=== PATIENT | male | born 1945 | race Caucasian/White ===

== ENCOUNTER 2025-04-14 22:34 | Observation (INO) ==
[2025-04-14 22:58] LABS: Hematocrit (blood only) 41.7 % (42.0-52.0); Hemoglobin 14.3 g/dL (14.0-18.0); Immature Granulocytes # (auto) 0.03 K/uL (0.01-0.20); Immature Granulocytes % (auto) 0.5 %; Mean Corpuscular Hemoglobin 31.3 pg (25.0-34.0); Mean Corpuscular Volume 91.2 fL (80.0-100.0); Platelet Count 178 K/uL (130-400); RDW Standard Deviation 43.7 fL (36.4-46.3); Red Blood Count 4.57 M/uL (4.70-6.10); White Blood Count 5.89 K/ul (4.8-10.8)
--- NOTE | 2025-04-14 23:14 | Emergency Department Note ---
Impression & Plan Atypical chest pain, Shortness of breath ED Provider Note CHIEF COMPLAINT: Chest pain HISTORY OF PRESENT ILLNESS: This 79-year-old male patient presents to the emergency department via private vehicle accompanied by . The patient states he has been experiencing chest pain for about the past 3 months. He states this has been worsening over the past month and really over the past week. Patient states he was helping his to do her leg exercises after her knee surgery and states he was experiencing sharp twinges of pain in the left side of his chest. The patient denies otherwise exertional symptoms. He states he does feel somewhat short of breath. He states the pain comes and goes. At baseline, he has no pain, but intermittently experiences twinges of pain. The patient did recently have a nuclear stress test completed which showed an area of apical ischemia. He was started on aspirin and amlodipine and follows up with cardiology in April. The patient states that he was not told that he urgently requires a heart catheterization or other testing at this time. He denies any recent illness or fever. No cough or congestion. No leg pain or swelling. Patient denies history of similar symptoms. History provided by: Patient REVIEW OF SYSTEMS: A 10 system review of systems was performed with positives and pertinent negatives listed in the history of present illness. All other systems were reviewed and are negative. ALLERGIES: Penicillin, statins PHYSICAL EXAM: VITALS: Vitals are noted on the nurse's note and reviewed by myself. GENERAL: This is an 79-year-old male, in no acute distress, nondiaphoretic, well-developed well-nourished. SKIN: The skin was without rashes, erythema, edema, or bruising. There is no tenting of the skin. Capillary refill less than 2 seconds. HEAD: Normocephalic atraumatic. EARS: External auditory canals clear, tympanic membranes pearly colmenares without erythema or effusion bilaterally. No hemotympanum. Negative rhoades sign EYES: Pupils equal round and reactive to light and accommodation. Conjunctivae without injection, sclerae without icterus. Extraocular movements intact. NOSE: Patent, turbinates without inflammation or discharge. No sinus tenderness. MOUTH: Mucous membranes moist. Tonsils are not enlarged. Pharynx without erythema or exudate. Uvula midline. Airway patent. Tongue does not deviate. NECK: Supple without nuchal rigidity. No lymphadenopathy. Cervical spine is nontender. No JVD. HEART: Regular rate and rhythm without murmurs gallops or rubs. LUNGS: Clear to auscultation bilaterally without wheezes, rales or rhonchi. No retractions or accessory muscle use. ABDOMEN: Positive bowel sounds x 4. Soft, nontender, without masses or organomegaly. Barron sign negative. No guarding or rebound tenderness. MUSCULOSKELETAL: No muscle atrophy, erythema, or edema noted. Full range of motion without joint tenderness in all extremities. No tenderness to palpation. Normal gait. Strength 5/5 throughout. NEURO: Patient was alert and oriented to person place and time. No focal neurological deficits. An order was placed for continuous hall monitor. The monitor showed a normal sinus rhythm at a ventricular rate of 70 bpm, per my interpretation. EKG was reviewed by myself and found to be sinus rhythm with sinus arrhythmia at a rate of 74 beats per minute and per my interpretation reveals incomplete right bundle branch block, no ST elevation or depression. No T wave inversion. And when compared to previous EKG of 01/04/2025 is without significant change Repeat EKG completed and without acute ischemic changes. Imaging as interpreted by myself and the radiologist revealed no consolidation, with radiologist interpretation as above. I agree with the radiologist's findings as based upon my independent interpretation. EMERGENCY DEPARTMENT COURSE: Patient was evaluated as above. The patient presents to the emergency department for chest pain. Patient presents with his . He developed sharp twinges of pain in the left side of his chest which were worse while helping his with her physical therapy exercises this evening. The twinges are coming and going and are nonexertional in nature. Patient did recently have a nuclear stress test completed which showed an area of apical ischemia. He states this pain is completely different than the angina pain he has been experiencing but is concerned that it is likely related to his heart. IV access was obtained, labs were drawn. Labs were reviewed. Per my interpretation, no leukocytosis or concerning anemia. No thrombocytopenia. Renal, hepatic function and electrolytes without significant abnormality. Lipase is 34. High-sensitivity troponin is 4.2. Repeat troponin completed approximately 2 hours later is 4.1. Chest x-ray and EKG as above. No acute abnormalities. I discussed the findings with the patient at bedside. He was reassured about his negative cardiac evaluation at this time. Suggested pain may be muscular in nature given recent activity and helping his with exercises. He notes that he does not believe his pain is not related to his heart despite the negative evaluation as well as this being reportedly different than his normal angina type of pain. I did offer admission. The patient would like to be evaluated by the hospitalist. I discussed the case with Dr. Heredia, [facility] hospitalist physician. He did agree to evaluate patient for admission. Please see hospitalist dictation regarding ongoing management and final disposition of this patient. Case was discussed with the attending physician. I attest that I have personally reviewed the patient medication list. I attest that I have reviewed the patient's blood pressure and it was found to be elevated. Suspect this to be situational in nature. GCS: 15 In the evaluation and treatment of this patient the following differential diagnoses were entertained: Cardiac ischemia, aortic dissection, pulmonary embolism, pneumothorax, pneumonia, pericarditis, myocarditis, esophageal rupture, GERD, cholecystitis, pancreatitis, musculoskeletal, as well as other pathologies. The chart was completed utilizing [employer] voice recognition software. Grammatical errors, random word insertions, pronoun errors, and incomplete sentences are an occasional consequence of this system due to software limitations, ambient noise, and hardware issues. Any formal questions or concerns about the content, text, or information contained within the body of this dictation should be directly addressed to the provider for clarification. Past Med/Surg History Problem List (Updated 04/15/25 @ 04:13 by Cheryl Navas PA-C) Shortness of breath (Acute) Atypical chest pain (Acute) Diabetes mellitus type 2, controlled Musculoskeletal chest pain Medical History Chest pain Social History Smoking Status: Former smoker Tobacco Type: Cigarettes Second Hand Exposure: No; Do You Dip or Chew Tobacco: No; Hx Alcohol Use: No Hx Substance Use: No Preferred Language: Lebanese Communication Ability: Effective Saturator Operator Required: No Beliefs That Will Affect Care: None Current Living Situation: Spouse Feels Safe at Home: Yes Safety Concerns: Feels Safe At This Time Assistive Devices: Denture - Upper, Denture - Lower and Glasses Assistive Devices Comment: Hearing aids at home Allergies Allergies Allergy/AdvReac Type Severity Reaction Status Date / Time omeprazole Allergy Unknown Verified 04/14/25 23:18 Penicillins AdvReac Unknown Verified 04/14/25 23:18 Dyghosz-[id number]-WnR Reductase AdvReac Joint Pain Verified 04/14/25 23:18 Inhibitor Home Meds Home Medications Medication Instructions Recorded Confirmed amlodipine 2.5 mg tablet 2.5 mg PO QAM 04/14/25 04/14/25 aspirin 81 mg tablet,delayed 81 mg PO QAM 04/14/25 04/14/25 release empagliflozin 25 mg tablet 25 mg PO QAM 04/14/25 04/14/25 (Jardiance) ezetimibe 10 mg tablet 10 mg PO QAM 04/14/25 04/14/25 glipizide 10 mg tablet 10 mg PO BIDM 04/14/25 04/14/25 mesalamine 1,000 mg rectal 1 g AR HS PRN if rectal bleeding 04/14/25 04/14/25 suppository mesalamine 1.2 gram tablet,delayed 1.2 g PO BID 04/14/25 04/14/25 release omega-3 fatty acids 500 mg capsule 500 mg PO QAM 04/14/25 04/14/25 tamsulosin 0.4 mg capsule 0.4 mg PO QAM 04/14/25 04/14/25 Results & Data (ED) Vital Signs Vital Signs - 24 hr 04/14/25 22:37 04/14/25 22:50 04/14/25 22:51 Temperature 36.5 C Temperature Source Temporal Artery Scan Pulse Rate 73 Pulse Rate [Apical] 70 Pulse Rhythm Regular Pulse Strength Normal Respiratory Rate 20 20 Respiratory Effort / Characteristics Non-Labored Spontaneous Respiratory Depth Normal Respiratory Pattern Regular Blood Pressure 146/80 H Blood Pressure [Left Arm] 137/76 Blood Pressure Mean 102 Blood Pressure Mean [Left Arm] 96 Blood Pressure Position [Left Arm] Pulse Oximetry 97 96 96 Oxygen Delivery Method Room Air Room Air Room Air Sepsis Recent Fever Within 48 Hours No Sepsis New/Unexplained Change in Mental Status No Sepsis Action Taken by Nursing No Action Required 04/14/25 22:58 04/15/25 01:00 Temperature Temperature Source Pulse Rate 70 Pulse Rate [Apical] 66 Pulse Rhythm Pulse Strength Respiratory Rate 15 Respiratory Effort / Characteristics Non-Labored Spontaneous Respiratory Depth Normal Respiratory Pattern Regular Blood Pressure Blood Pressure [Left Arm] 148/77 H Blood Pressure Mean Blood Pressure Mean [Left Arm] 100 Blood Pressure Position [Left Arm] Semi-fowlers Pulse Oximetry 95 Oxygen Delivery Method Room Air Sepsis Recent Fever Within 48 Hours Sepsis New/Unexplained Change in Mental Status Sepsis Action Taken by Nursing Laboratory Data 04/14/25 22:46 04/14/25 22:46 Lab Results 04/14/25 04/15/25 Range/Units 22:46 00:53 WBC 5.89 (4.8-10.8) K/ul RBC 4.57 L (4.70-6.10) M/uL Hgb 14.3 (14.0-18.0) g/dL Hct 41.7 L (42.0-52.0) % MCV 91.2 (80.0-100.0) fL MCH 31.3 (25.0-34.0) pg MCHC 34.3 (32.0-36.0) g/dL RDW Std Deviation 43.7 (36.4-46.3) fL RDW Coeff of Epifanio 13.1 (11.5-14.5) % Plt Count 178 (130-400) K/uL MPV 9.8 (9.4-12.4) fL Immature Gran % (Auto) 0.5 % Neut % (Auto) 51.9 % Lymph % (Auto) 28.0 % [place] % (Auto) 15.1 % Eos % (Auto) 4.2 % Baso % (Auto) 0.3 % Neut # (Auto) 3.05 (1.40-6.50) K/uL Lymph # (Auto) 1.65 (1.20-3.40) K/uL [place] # (Auto) 0.89 H (0.11-0.59) K/uL Eos # (Auto) 0.25 (0.00-0.50) K/uL Baso # (Auto) 0.02 (0.00-0.20) K/uL Immature Gran # (Auto) 0.03 (0.01-0.20) K/uL Sodium 139 (136-145) mmol/L Potassium 4.4 (3.5-5.1) mmol/L Chloride 107 (98-107) mmol/L Carbon Dioxide 26 (21-32) mmol/L Anion Gap 6 (3-11) BUN 18 (6-23) mg/dl Creatinine 1.01 (0.6-1.4) mg/dl Est Cr Clr Drug Dosing 51.8 ml/min eGFR 74.72 BUN/Creatinine Ratio 17.8 (10-20) Glucose 196 H (70-99(Fasting)) mg/dl Calcium 9.0 (8.6-10.3) mg/dl Magnesium 2.1 (1.7-2.4) mg/dl Total Bilirubin 0.3 (0.2-1.0) mg/dl AST 15 (13-39) U/L ALT 15 (7-52) U/L Alkaline Phosphatase 67 (34-104) U/L Troponin I High Sens 4.2 4.1 (0-20) pg/ml Total Protein 7.4 (6.0-8.3) gm/dl Albumin 4.0 (3.4-5.0) gm/dl Globulin 3.4 (2.5-4.0) gm/dl Albumin/Globulin Ratio 1.2 (0.9-2) Lipase 34 (11-82) U/L Administered Medications Sodium Chloride (Nss) 1,000 mls @ 60 mls/hr IV .[id number] ONE Stop: 04/15/25 19:52 Last Admin: 04/15/25 03:43 Dose: 60 mls/hr Documented By: MELANIE Insulin Aspart (Insulin Aspart Per Unit Charge) 0 units SC Q6 ROSA Stop: 05/15/25 03:36 Last Admin: 04/15/25 04:00 Dose: Not Given Documented By: NRS Discontinued Medications Ioversol (Optiray 320 125ml) 125 ml IV ONCE ONE Stop: 04/15/25 03:25 Last Admin: 04/15/25 03:24 Dose: 118 ml Documented By: RAMÍREZ Imaging Data Radiologist's Impression: Chest X-Ray 04/14/25 22:49 Exam(s): XR CXR 1 VIEW EXAM: XR Chest, 1 View CLINICAL HISTORY: Chest pain, nonspecific. TECHNIQUE: Frontal view of the chest. COMPARISON: Portable chest single view 01/04/2025 FINDINGS: Lungs: Subcentimeter calcified granulomas, stable. No focal consolidation. The pulmonary vasculature demonstrates no significant radiographic abnormality. Pleural space: Unremarkable. No pneumothorax. No large pleural effusion. Heart: Unremarkable. No cardiomegaly. Mediastinum: The mediastinal contours are stable, accounting for lordotic technique. No tracheal deviation. Bones/joints: Unremarkable. No acute fracture. IMPRESSION: No acute cardiopulmonary process or significant alteration from the prior examination. Electronically signed by: Timur Carroll MD 04/15/25 00:11 AM Discharge Plan Visit Data Chief Complaint: Chest Pain Stated Complaint: CHEST PAIN OVER A WEEK, WORSE TODAY, SOB ED Provider: Gerda Silva ED Midlevel Provider: Cheryl Navas Discharge Problem: Atypical chest pain, Shortness of breath Patient Disposition: Admitted As Inpatient Condition: Good
[2025-04-14 23:25] LABS: Alanine Aminotransferase 15.0 U/L (7-52); Albumin Globulin Ratio 1.2 (0.9-2); Albumin Level 4.0 gm/dl (3.4-5.0); Alkaline Phosphatase 67.0 U/L (34-104); Anion Gap 6.0 (3-11); Bilirubin,Total 0.3 mg/dl (0.2-1.0); Blood Urea Nitrogen 18.0 mg/dl (6-23); Calcium 9.0 mg/dl (8.6-10.3); Carbon Dioxide 26.0 mmol/L (21-32); Chloride 107.0 mmol/L (98-107); Creatinine Clr Calc Pharmacy 51.8 ml/min; Globulin 3.4 gm/dl (2.5-4.0); Glucose 196.0 mg/dl (70-99(Fasting)); Lipase 34.0 U/L (11-82); Potassium 4.4 mmol/L (3.5-5.1); Sodium 139.0 mmol/L (136-145); Total Protein 7.4 gm/dl (6.0-8.3)
--- NOTE | 2025-04-15 00:13 | XRay Report ---
Exam(s): XR CXR 1 VIEW EXAM: XR Chest, 1 View CLINICAL HISTORY: Chest pain, nonspecific. TECHNIQUE: Frontal view of the chest. COMPARISON: Portable chest single view 01/04/2025 FINDINGS: Lungs: Subcentimeter calcified granulomas, stable. No focal consolidation. The pulmonary vasculature demonstrates no significant radiographic abnormality. Pleural space: Unremarkable. No pneumothorax. No large pleural effusion. Heart: Unremarkable. No cardiomegaly. Mediastinum: The mediastinal contours are stable, accounting for lordotic technique. No tracheal deviation. Bones/joints: Unremarkable. No acute fracture. IMPRESSION: No acute cardiopulmonary process or significant alteration from the prior examination. Electronically signed by: Timur Carroll MD 04/15/25 00:11 AM
--- NOTE | 2025-04-15 02:27 | History & Physical Report ---
Date of Service April 15, 2025 Assessment & Plan (1) Chest pain: Plan: Assessment and plan below following discussion of case with ED provider and reviewing patient history/pertinent normal/abnormal diagnostic test results. Chest pain possible ACS Apical ischemia on recent outpatient nuclear stress test Musculoskeletal component contributory given reproducibility on exam hypertension, slightly elevated hyperlipidemia/statin intolerance COPD, not in acute exacerbation DM2 on oral medications, suboptimal control as of recent hemoglobin A1c of 7.8 last October 2024 ulcerative proctitis, patient still with rectal bleeding although improving from recent flareup past tobacco abuse OBS Admit to PCU Follow troponin Cardiology consult N.p.o. until seen by cardiology in anticipation of ischemic workup DVT prophylaxis. SCDs for now given intermittent LGIB, may need IV heparin if with subsequent troponin elevation Full code Patient requesting updates providers. Rosi Collette Khan, contact #[phone]. Text document was generated using [employer] recognition software. It may contain grammatical or spelling errors. Kindly contact undersigned for clarification of any documentation item in question. History of Present Illness Chief Complaint: Chest pain Primary Care Provider: Rosanna Buckley PA-C History obtained from patient, family, and records. Medical history significant for hypertension, hyperlipidemia/statin intolerance, COPD, DM2 on oral medications, ulcerative proctitis, BPH, past tobacco abuse. Last confinement October 2024 for left-sided chest pain attributed to musculoskeletal etiology. Stress echo negative. Recurrent left-sided chest pain symptoms following discharge from the hospital. Outpatient nuclear stress test requested by [facility] 2 weeks ago showed small area of apical ischemia. Follow-up appointment recommended to discuss options. Provider recommended starting aspirin 81 mg daily and amlodipine 2.5 mg p.o. daily given elevated BP at time of stress test. Patient scheduled to see provider next month. Recurrent left-sided chest pain episodes both at rest and exertion associated with SOB following stress test. No unusual cough symptoms. Patient compliant with new home medications. No abdominal pain, intermittent rectal bleed from proctitis episode from last month getting better with medication prescribed by GI provider. Patient consulted ER for worsening symptoms last night. Patient currently comfortable. 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 Allergies Allergy/AdvReac Type Severity Reaction Status Date / Time omeprazole Allergy Unknown Verified 11/19/25 23:18 Penicillins AdvReac Unknown Verified 04/14/25 23:18 [id number]-[id number] Reductase AdvReac Joint Pain Verified 04/14/25 23:18 Inhibitor Home Medications Medication Instructions Recorded Confirmed Type amlodipine 2.5 mg tablet 2.5 mg PO QAM 04/14/25 04/14/25 History aspirin 81 mg tablet,delayed 81 mg PO QAM 04/14/25 04/14/25 History release empagliflozin 25 mg tablet 25 mg PO QAM 04/14/25 04/14/25 History (Jardiance) ezetimibe 10 mg tablet 10 mg PO QAM 04/14/25 04/14/25 History glipizide 10 mg tablet 10 mg PO BIDM 04/14/25 04/14/25 History mesalamine 1,000 mg rectal 1 g NC HS PRN if rectal bleeding 04/14/25 04/14/25 History suppository mesalamine 1.2 gram tablet,delayed 1.2 g PO BID 04/14/25 04/14/25 History release omega-3 fatty acids 500 mg capsule 500 mg PO QAM 04/14/25 04/14/25 History tamsulosin 0.4 mg capsule 0.4 mg PO QAM 04/14/25 04/14/25 History Past Med/Surg History Problem List (Updated 04/15/25 @ 04:13 by Cheryl Navas PA-C) Shortness of breath (Acute) Atypical chest pain (Acute) Diabetes mellitus type 2, controlled Musculoskeletal chest pain Medical History Chest pain Social History Smoking Status: Former smoker Tobacco Type: Cigarettes Second Hand Exposure: No; Do You Dip or Chew Tobacco: No; Hx Alcohol Use: No Hx Substance Use: No Preferred Language: Sammarinese Communication Ability: Effective Weigh Tank Operator Required: No Beliefs That Will Affect Care: None Current Living Situation: Spouse Feels Safe at Home: Yes Assistive Devices: Denture - Upper, Denture - Lower and Glasses Review of Systems Review of Systems: As per HPI, all other systems reviewed and negative Physical Exam Physical Exam: GENERAL: Comfortable, pleasant, slightly anxious, no respiratory distress SKIN: Normal color, warm HEENT: [place] palpebral conjunctivae, no ptosis, moist buccal mucosa NECK : Supple, no tenderness CHEST : CTA, left chest wall tenderness HEART : RRR, no obvious murmurs ABDOMEN: Some distention, nontender EXTREMITIES : No LE swelling/tenderness, palpable pulses, no other conspicuous deformities noted NEUROLOGIC : Coherent, no facial asymmetry, no other gross focality Results & Data Results & Data Vital Signs (Past 12 Hours) Vital Signs Temp Pulse Pulse Resp BP BP Pulse Ox 04/15/25 01:00 66 15 148/77 H 95 04/14/25 22:58 70 04/14/25 22:51 70 20 137/76 96 04/14/25 22:50 96 04/14/25 22:37 36.5 C 73 20 146/80 H 97 O2 Del Method 04/15/25 01:00 Room Air 04/14/25 22:58 04/14/25 22:51 Room Air 04/14/25 22:50 Room Air 04/14/25 22:37 Room Air Laboratory Results Laboratory Results WBC 5.89 K/ul (4.8-10.8) 04/14/25 22:46 RBC 4.57 M/uL (4.70-6.10) L 04/14/25 22:46 Hgb 14.3 g/dL (14.0-18.0) 04/14/25 22:46 Hct 41.7 % (42.0-52.0) L 04/14/25 22:46 MCV 91.2 fL (80.0-100.0) 04/14/25 22:46 MCH 31.3 pg (25.0-34.0) 04/14/25 22:46 MCHC 34.3 g/dL (32.0-36.0) 04/14/25 22:46 RDW Std Deviation 43.7 fL (36.4-46.3) 04/14/25 22:46 RDW Coeff of Epifanio 13.1 % (11.5-14.5) 04/14/25 22:46 Plt Count 178 K/uL (130-400) 04/14/25 22:46 MPV 9.8 fL (9.4-12.4) 04/14/25 22:46 Immature Gran % (Auto) 0.5 % 04/14/25 22:46 Neut % (Auto) 51.9 % 04/14/25 22:46 Lymph % (Auto) 28.0 % 04/14/25 22:46 [place] % (Auto) 15.1 % 04/14/25 22:46 Eos % (Auto) 4.2 % 04/14/25 22:46 Baso % (Auto) 0.3 % 04/14/25 22:46 Neut # (Auto) 3.05 K/uL (1.40-6.50) 04/14/25 22:46 Lymph # (Auto) 1.65 K/uL (1.20-3.40) 04/14/25 22:46 [place] # (Auto) 0.89 K/uL (0.11-0.59) H 04/14/25 22:46 Eos # (Auto) 0.25 K/uL (0.00-0.50) 04/14/25 22:46 Baso # (Auto) 0.02 K/uL (0.00-0.20) 04/14/25 22:46 Immature Gran # (Auto) 0.03 K/uL (0.01-0.20) 04/14/25 22:46 Sodium 139 mmol/L (136-145) 04/14/25 22:46 Potassium 4.4 mmol/L (3.5-5.1) 04/14/25 22:46 Chloride 107 mmol/L (98-107) 04/14/25 22:46 Carbon Dioxide 26 mmol/L (21-32) 04/14/25 22:46 Anion Gap 6 (3-11) 04/14/25 22:46 BUN 18 mg/dl (6-23) 04/14/25 22:46 Creatinine 1.01 mg/dl (0.6-1.4) 04/14/25 22:46 Est Cr Clr Drug Dosing 51.8 ml/min 04/14/25 22:46 eGFR 74.72 04/14/25 22:46 BUN/Creatinine Ratio 17.8 (10-20) 04/14/25 22:46 Glucose 196 mg/dl (70-99(Fasting)) H 04/14/25 22:46 Calcium 9.0 mg/dl (8.6-10.3) 04/14/25 22:46 Total Bilirubin 0.3 mg/dl (0.2-1.0) 04/14/25 22:46 AST 15 U/L (13-39) 04/14/25 22:46 ALT 15 U/L (7-52) 04/14/25 22:46 Alkaline Phosphatase 67 U/L (34-104) 04/14/25 22:46 Troponin I High Sens 4.1 pg/ml (0-20) 04/15/25 00:53 Total Protein 7.4 gm/dl (6.0-8.3) 04/14/25 22:46 Albumin 4.0 gm/dl (3.4-5.0) 04/14/25 22:46 Globulin 3.4 gm/dl (2.5-4.0) 04/14/25 22:46 Albumin/Globulin Ratio 1.2 (0.9-2) 04/14/25 22:46 Lipase 34 U/L (11-82) 04/14/25 22:46 Impressions Chest X-Ray 04/14/25 22:49 Exam(s): XR CXR 1 VIEW EXAM: XR Chest, 1 View CLINICAL HISTORY: Chest pain, nonspecific. TECHNIQUE: Frontal view of the chest. COMPARISON: Portable chest single view 01/04/2025 FINDINGS: Lungs: Subcentimeter calcified granulomas, stable. No focal consolidation. The pulmonary vasculature demonstrates no significant radiographic abnormality. Pleural space: Unremarkable. No pneumothorax. No large pleural effusion. Heart: Unremarkable. No cardiomegaly. Mediastinum: The mediastinal contours are stable, accounting for lordotic technique. No tracheal deviation. Bones/joints: Unremarkable. No acute fracture. IMPRESSION: No acute cardiopulmonary process or significant alteration from the prior examination. Electronically signed by: Timur Carroll MD 04/15/25 00:[address] chest: 1. No evidence of significant vascular abnormalities. 2. Interval new bilateral diffuse mosaic attenuation of the lung parenchyma. This might denote underlying small airway disease. 3. Right lower lobe 4 mm calcified granuloma.Interval stable. 4. A few scattered atherosclerotic plaques of the scanned aorta.Interval stable. 5. A few enlarged mediastinal lymph nodes. Interval stable. Diagnostic Findings EKG as per my interpretation :Rate 75, RAD, incomplete RBBB, no ischemia
[2025-04-15] MEDS ORDERED: MoRPHine SULFATE 4 MG/ML 1 ML CARP\\VIAL IV PRN (02:29)
[2025-04-15] MEDS ORDERED: PROMETHAZINE 6.25 MG/50.25 ML BAG IV PRN (02:29)
[2025-04-15] MEDS ORDERED: NITROGLYCERIN SL 0.4 MG/TAB TAB SL PRN (02:29)
[2025-04-15 02:41] LABS: Magnesium 2.1 mg/dl (1.7-2.4)
[2025-04-15] MEDS: OPTIRAY 320 125ml IV ONE (03:24)
[2025-04-15] MEDS ORDERED: GLUCOSE 10 TAB/TUBE PO PRN (03:37)
[2025-04-15] MEDS ORDERED: GLUCAGON FOR INJ 1 MG VIAL SQ PRN (03:37)
[2025-04-15] MEDS ORDERED: GLUCOSE 40% GEL 15 GM TUBE PO PRN (03:37)
[2025-04-15] MEDS ORDERED: CARBOHYDRATES FOR HYPOGLYCEMIA PO PRN (03:37)
[2025-04-15] MEDS ORDERED: DEXTROSE 50% 50 ML SYRINGE IV PRN (03:37)
[2025-04-15] MEDS: SODIUM CHLORIDE 0.9% 1,000 ML IV ONE (03:43)
[2025-04-15] MEDS: INSULIN ASPART PER UNIT CHARGE SC SCH ×2 (04:00→20:19)
--- NOTE | 2025-04-15 04:27 | CT Scan Report ---
EXAM: CT angio chest PE protocol CLINICAL HISTORY: Chest pain. TECHNIQUE: Contiguous 3.[address] angiographic images of the chest were acquired with the administration of intravenous contrast 118 ml optiray 320 mg/ml. Coronal and sagittal reconstructions were obtained. One of these 3D techniques was utilized: Maximum Intensity Pixel (MIP), 3D Reconstructed Images, Volume Rendered Images, Surface Shaded Rendering. One of the following dose reduction techniques were utilized for this exam: Automated exposure control, adjustment of the mA and/or kV according to patient size, and use of iterative reconstruction. COMPARISON: Compared to the prior study dated 11/10/2024 FINDINGS: Aorta: The thoracic aorta is normal in caliber. No evidence of aneurysm or dissection. A few scattered atherosclerotic plaques of the scanned aorta.Interval stable. Pulmonary Arteries: Pulmonary arteries are normal in size and opacification. No evidence of pulmonary embolism. No stenosis or filling defects. Superior Vena Cava (SVC) and Inferior Vena Cava (IVC): Normal opacification and caliber. No evidence of thrombus or obstruction. Coronary Arteries: Coronary arteries are well-opacified. No significant stenosis or atherosclerotic changes. Mediastinum: A few enlarged mediastinal lymph nodes, the largest is noted in the pre-tracheal/retrocaval group, measuring about 13 mm in the short axis diameter. Interval stable. Heart: Normal size and morphology of the heart. No pericardial effusion. Lungs: Interval new bilateral diffuse mosaic attenuation of the lung parenchyma. No pleural effusion or pleural thickening. Bilateral basal reticulation and scarring. Interval stable. Right lower lobe 4 mm calcified granuloma.Interval stable. Bones: No fractures or lytic/sclerotic lesions of the visualized bony structures. Normal alignment and bone density. Soft Tissues: Normal appearance of the visualized soft tissues. No abnormal masses or fluid collections. Upper abdominal cuts reveal a small sliding hiatus hernia with incomplete visualization of the kidneys, only showing left multiple cysts and calcifications. Interval stable. IMPRESSION: 1. No evidence of significant vascular abnormalities. 2. Interval new bilateral diffuse mosaic attenuation of the lung parenchyma. This might denote underlying small airway disease. 3. Right lower lobe 4 mm calcified granuloma.Interval stable. 4. A few scattered atherosclerotic plaques of the scanned aorta.Interval stable. 5. A few enlarged mediastinal lymph nodes. Interval stable. Electronically signed by Syed Gross 04-15-2025 04:27 AM
[2025-04-15 05:38] LABS: Hematocrit (blood only) 41.2 % (42.0-52.0); Hemoglobin 14.3 g/dL (14.0-18.0); Immature Granulocytes # (auto) 0.03 K/uL (0.01-0.20); Immature Granulocytes % (auto) 0.5 %; Mean Corpuscular Hemoglobin 31.5 pg (25.0-34.0); Mean Corpuscular Volume 90.7 fL (80.0-100.0); Platelet Count 162 K/uL (130-400); RDW Standard Deviation 43.4 fL (36.4-46.3); Red Blood Count 4.54 M/uL (4.70-6.10); White Blood Count 6.31 K/ul (4.8-10.8)
[2025-04-15 05:54] LABS: Anion Gap 3.0 (3-11); Blood Urea Nitrogen 16.0 mg/dl (6-23); Calcium 9.0 mg/dl (8.6-10.3); Carbon Dioxide 27.0 mmol/L (21-32); Chloride 108.0 mmol/L (98-107); Creatinine Clr Calc Pharmacy 56.8 ml/min; Glucose 143.0 mg/dl (70-99(Fasting)); Potassium 5.2 mmol/L (3.5-5.1); Sodium 138.0 mmol/L (136-145)
[2025-04-15 06:10] LABS: Partial Thromboplastin Time 29 Seconds (21-31)
[2025-04-15] MEDS: ENOXAPARIN INJ 40 MG/0.4 ML SYR SQ SCH (08:35)
[2025-04-15] MEDS: ASPIRIN 81 MG ECTAB PO SCH (08:35)
[2025-04-15] MEDS: TAMSULOSIN HCL 0.4 MG CAP PO SCH (08:35)
--- NOTE | 2025-04-15 08:39 | Cardiology Consultation ---
Date of Consultation April 15, 2025 Assessment & Plan (1) Atypical chest pain: (2) Shortness of breath: (3) Abnormal nuclear stress test: Plan Assessment: 79 year old male presents to the ER with intermittent episodes of chest pain, and shortness of breath worse with exertion. Recent abnormal nuclear stress test. EKG with no acute ischemic changes and troponin negative x3 1. Atypical chest pain 2. Shortness of breath with exertion 3. Abnormal nuclear stress test -patient presents with atypical chest pain and dyspnea on exertion, worse over past few weeks. -Recent abnormal nuclear stress test. -discussed multifactorial causes for his symptoms, but given his recurrent symptoms and recent abnormal stress test recommend moving forward with a cardiac cath. Patient and spouse are in agreement. -Currently NPO -Of note, patient has a history of rectal proctitis. He follows with [facility]. We have personally spoke with his GI Provider ROMINA Shultz and have received the OK to move forward with cardiac catheterization. They are aware that should intervention be needed, patient will require DAPT for a minimum of one year. -BP controlled -Continue Amlodipine, ASA 81mg, jardiance and Zetia. Reported intolerance to zetia. Has not been on beta chacorta therapy in past due to resting bradycardia. -Spoke with Dr. Wes Scott, Interventional cardiology. Patient will undergo Left heart cath today. Case has been discussed with Dr. Wellington. Further recommendations regarding plan of care as per his assessment. I spent a total of 50 minutes on the date of service in preparation, delivery, documentation of the care provided to the patient excluding any time spent in the performance of separately billed services. ROMINA Maria [facility] Cardiology [facility] Supervising Physician Co-Signing Physician Notes Patient seen and examined. Past medical history, surgical history, social history and family history have been reviewed. The medical record and all the above studies have been reviewed. Case DW OLIVIA including management. Chest Pain Abnormal Nuclear Stress Test Lower GI bleed - Ulcerative proctitis DM HLD COPD BPH card cath dw patient - he and at bedside understand and want to proceed ISABELL Scott -> card cath cont medical management correct and f/u electrolytes f/u renal function GDMT for HFrEF limited due to renal insufficiency and low BP adjust anti-HTN meds keeping systolic BP between 100-140 mmHg DVT prophylaxis History of Present Illness Reason for Consultation: Chest pain Requesting Physician: Nika hospitalist Attending Physician: Marlon Arthur MD History of Present Illness HPI: Patient is a 79 year old male with PMHx as outlined below that presents to the ER with complaints of recurrent left-sided chest pain both at rest and exertion that has been ongoing since October 2024. patient had undergone a stress echocardiogram which was equivocal; however, went on to have an outpatient cardiology consultation and was sent for a nuclear stress test which was abnormal suggesting a small area of apical ischemia. Patient is sitting out of bed in a chair at time of exam. visiting at bedside. He denies any active chest pain at this time. Reports several intermittent episodes over the past few months, more frequent and intense over the past few weeks described as a sharp "umzasvk-beyewjur-reaxklfs" with some associated shortness of breath. happens at both rest and exertion, worse with exertion. Patient initially denied any rectal bleeding, but then reports he will go 3-4 days without bleeding, require laxatives in order to have a bowel movement and then develop bleeding for a day or two. He is followed by Nika LEAL and I have spoken with them via phone to discuss his current plan of care regarding this issue. Problem List: 1. Dyslipidemia-statin intolerance--on zetia 2. DM Type II 3. 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 COPD 5. BPH 6. Prior tobacco use EKG on admission shows SR with Premature supraventricular contractions. Rate 63bpm, QTC 378ms Chest x-ray negative CTA Chest: IMPRESSION: 1. No evidence of significant vascular abnormalities. 2. Interval new bilateral diffuse mosaic attenuation of the lung parenchyma. This might denote underlying small airway disease. 3. Right lower lobe 4 mm calcified granuloma.Interval stable. 4. A few scattered atherosclerotic plaques of the scanned aorta.Interval stable. 5. A few enlarged mediastinal lymph nodes. Interval stable. High sensitivity negative x3 Allergies Allergy/AdvReac Type Severity Reaction Status Date / Time omeprazole Allergy Unknown Verified 04/14/25 23:18 Penicillins AdvReac Unknown Verified 04/14/25 23:18 Pgeyrjz-JLW-YgJ Reductase AdvReac Joint Pain Verified 04/14/25 23:18 Inhibitor Home Medications Medication Instructions Recorded Confirmed Type amlodipine 2.5 mg tablet 2.5 mg PO QAM 04/14/25 04/14/25 History aspirin 81 mg tablet,delayed 81 mg PO QAM 04/14/25 04/14/25 History release empagliflozin 25 mg tablet 25 mg PO QAM 04/14/25 04/14/25 History (Jardiance) ezetimibe 10 mg tablet 10 mg PO QAM 04/14/25 04/14/25 History glipizide 10 mg tablet 10 mg PO BIDM 04/14/25 04/14/25 History mesalamine 1,000 mg rectal 1 g SC HS PRN if rectal bleeding 04/14/25 04/14/25 History suppository mesalamine 1.2 gram tablet,delayed 1.2 g PO BID 04/14/25 04/14/25 History release omega-3 fatty acids 500 mg capsule 500 mg PO QAM 04/14/25 04/14/25 History tamsulosin 0.4 mg capsule 0.4 mg PO QAM 04/14/25 04/14/25 History Patient History Medical History Chest pain Social History Smoking Status: Former smoker Tobacco Type: Cigarettes Second Hand Exposure: No; Do You Dip or Chew Tobacco: No; Hx Alcohol Use: No Hx Substance Use: No Preferred Language: Vietnamese Communication Ability: Effective Newsagent Required: No Beliefs That Will Affect Care: None Current Living Situation: Spouse Feels Safe at Home: Yes Assistive Devices: Denture - Upper, Denture - Lower and Glasses Review of Systems Review of Systems: All systems reviewed & are unremarkable except as noted in HPI & below Physical Exam Constitutional: well developed and well nourished; no acute distress Neck: normal visual inspection and trachea midline Respiratory: normal respiratory effort, lungs clear to auscultation Cardiovascular: RRR, no murmur, no edema Heart Sounds: no murmur Vessels: no JVD Extremities: no edema Skin: no rashes, warm and dry Psychiatric: A+Ox3, euthymic affect Results & Data Vital Signs (Past 12 Hours) Vital Signs Temp Pulse Pulse Resp BP BP BP 04/15/25 08:19 36.3 C L 53 L 20 130/80 04/15/25 03:35 36.3 C L 63 16 146/76 H 04/15/25 03:00 66 19 144/91 H 04/15/25 01:00 66 15 148/77 H 04/14/25 22:58 70 04/14/25 22:51 70 20 137/76 04/14/25 22:50 04/14/25 22:37 36.5 C 73 20 146/80 H Pulse Ox O2 Del Method 04/15/25 08:19 95 Room Air 04/15/25 03:35 97 Room Air 04/15/25 03:00 97 Room Air 04/15/25 01:00 95 Room Air 04/14/25 22:58 04/14/25 22:51 96 Room Air 04/14/25 22:50 96 Room Air 04/14/25 22:37 97 Room Air Laboratory Results Cardiac Enzymes 04/14/25 04/15/25 04/15/25 Range/Units 22:46 00:53 05:24 AST 15 (13-39) U/L Troponin I High Sens 4.2 4.1 3.7 (0-20) pg/ml Coagulation 04/15/25 Range/Units 05:24 APTT 29 (21-31) Seconds CBC 04/14/25 04/15/25 Range/Units 22:46 05:24 WBC 5.89 6.31 (4.8-10.8) K/ul RBC 4.57 L 4.54 L (4.70-6.10) M/uL Hgb 14.3 14.3 (14.0-18.0) g/dL Hct 41.7 L 41.2 L (42.0-52.0) % Plt Count 178 162 (130-400) K/uL Neut # (Auto) 3.05 3.58 (1.40-6.50) K/uL Lymph # (Auto) 1.65 1.50 (1.20-3.40) K/uL Castro # (Auto) 0.89 H 0.94 H (0.11-0.59) K/uL Eos # (Auto) 0.25 0.23 (0.00-0.50) K/uL Baso # (Auto) 0.02 0.03 (0.00-0.20) K/uL Comprehensive Metabolic Panel 04/14/25 04/15/25 Range/Units 22:46 05:24 Sodium 139 138 (136-145) mmol/L Potassium 4.4 5.2 H (3.5-5.1) mmol/L Chloride 107 108 H (98-107) mmol/L Carbon Dioxide 26 27 (21-32) mmol/L BUN 18 16 (6-23) mg/dl Creatinine 1.01 0.92 (0.6-1.4) mg/dl Glucose 196 H 143 H (70-99(Fasting)) mg/dl Calcium 9.0 9.0 (8.6-10.3) mg/dl AST 15 (13-39) U/L ALT 15 (7-52) U/L Alkaline Phosphatase 67 (34-104) U/L Total Protein 7.4 (6.0-8.3) gm/dl Albumin 4.0 (3.4-5.0) gm/dl Intake and Output 04/14/25 04/15/25 04/15/25 22:59 06:59 14:59 Other: Other Intake Source Patient is NPO Weight 74.2 kg 73.663 kg Weight Measurement Method Chair Scale Built in [facility] Diagnostic Findings Nuclear stress test 04/02/25 Interpretation Summary Abnormal Lexiscan myocardial nuclear perfusion imaging study demonstrating a small area of apical ischemia. 12/03 chest discomfort reported during stress testing. Gated SPECT images reveals normal myocardial thickening and wall motion. The LV ejection fraction is calculated at 72%. This study has what is deemed to be a "significant abnormality" consistent with ACT 112. See additional documentation regarding notification of patient and ordering provider. PG Care Time/CCT Total # of Minutes Spent Total Time Spent with Patient: Total time spent is greater than 50% in coordination of care (as documented) at patient's floor/unit and/or counseling patient: Coding Level of Care Code 82268 IN/OBS CONSULT LVL 5,80M Diagnoses Atypical chest pain R07.89 Shortness of breath R06.02 Abnormal nuclear stress test R94.39 Time Spent (min) 50
[2025-04-15] MEDS: LANTUS PER UNIT CHARGE SQ SCH (08:54)
--- NOTE | 2025-04-15 13:46 | Pre Anesthesia Assessment ---
Date of Service April 15, 2025 Pre Sedation Assessment Vital Signs Temp Pulse Pulse Resp BP BP BP 04/15/25 11:34 97.5 F L 71 18 129/74 04/15/25 08:19 97.3 F L 53 L 20 130/80 04/15/25 08:00 63 04/15/25 03:35 97.3 F L 63 16 146/76 H 04/15/25 03:00 66 19 144/91 H 04/15/25 01:00 66 15 148/77 H 04/14/25 22:58 70 04/14/25 22:51 70 20 137/76 04/14/25 22:50 04/14/25 22:37 97.7 F 73 20 146/80 H Pulse Ox O2 Del Method 04/15/25 11:34 96 Room Air 04/15/25 08:19 95 Room Air 04/15/25 08:00 04/15/25 03:35 97 Room Air 04/15/25 03:00 97 Room Air 04/15/25 01:00 95 Room Air 04/14/25 22:58 04/14/25 22:51 96 Room Air 04/14/25 22:50 96 Room Air 04/14/25 22:37 97 Room Air Cardiovascular + regular rate Respiratory + respiratory effort normal Pre-Sedation Airway Assessment Smoking Status: Former smoker Hx Sleep Apnea: No Hx Difficult Intubation: No Short, Thick Neck: No Thyromental Distance: > or= 3.5 Finger Breadths Oral Cavity: + Dental Abnormalities Mallampati Class: II ASA: ASA3 Procedure Planning Contraindications for Sedation: none Current Medications Reviewed: Yes Notes The planned sedation has been discussed with the patient. Informed Consent was obtained. I have identified the patient, determined the appropriateness of sedation and have assessed the patient immediately prior to the procedure. All medicine(s) and interventions are by my order.
[2025-04-15] MEDS: MIDAZOLAM HCL 1 MG/ML 2ML VIAL ONE (14:42)
[2025-04-15] MEDS: HEPARIN (PORCINE) 1000 UNIT/ML 10 ML (CATH LAB USE ONLY) ONE (14:42)
[2025-04-15] MEDS: OPTIRAY 350 ONE (14:42)
[2025-04-15] MEDS: niCARdipine 2,000 MCG/20 ML SYR ONE (14:43)
[2025-04-15] MEDS: NITROGLYCERIN/D5W 100MCG/ML 20ML SYR ONE (14:43)
--- NOTE | 2025-04-15 14:47 | Post Anesthesia Assessment ---
Date of Service April 15, 2025 Post Sedation Assessment Vital Signs Temp Pulse Pulse Resp BP BP BP 04/15/25 13:45 74 16 126/72 04/15/25 11:34 97.5 F L 71 18 129/74 04/15/25 08:19 97.3 F L 53 L 20 130/80 04/15/25 08:00 63 04/15/25 03:35 97.3 F L 63 16 146/76 H 04/15/25 03:00 66 19 144/91 H 04/15/25 01:00 66 15 148/77 H 04/14/25 22:58 70 04/14/25 22:51 70 20 137/76 04/14/25 22:50 04/14/25 22:37 97.7 F 73 20 146/80 H Pulse Ox O2 Del Method 04/15/25 13:45 95 Room Air 04/15/25 11:34 96 Room Air 04/15/25 08:19 95 Room Air 04/15/25 08:00 04/15/25 03:35 97 Room Air 04/15/25 03:00 97 Room Air 04/15/25 01:00 95 Room Air 04/14/25 22:58 04/14/25 22:51 96 Room Air 04/14/25 22:50 96 Room Air 04/14/25 22:37 97 Room Air Recovery Score Activity: Moves 4 extremities Respiration: Deep Breath/Cough Circulation: +/-20% PreAnes Value Consciousness: Fully Awake Oxygen Saturation: O2 needed for >90% Discharge Sedation Level of Care: Fast Track Phase II
--- NOTE | 2025-04-15 14:50 | Post Operative Brief Note ---
Cardiology Brief Post Op Date of Surgery April 15, 2025 Pre & Post Diagnosis Nonobstructive CAD Procedure Cardiac catheterization, IFR, IVUS Roof Tiler Herson Scott MD [facility] Estimated Blood Loss 20 Findings See Below Left main with eccentric 30% ostial stenosis and angulated takeoff 40% mid LADnonobstructive by IFR (0.94) No significant circumflex, RCA disease Normal LVEDP Anesthesia Type RN Sedation Disposition Disposition: PCU
[2025-04-15] MEDS ORDERED: Nursing to Pharmacy Communication SCH (17:30)
[2025-04-15] MEDS: ACETAMINOPHEN 325 MG TAB PO PRN (20:46)
[2025-04-15] MEDS: SODIUM CHLORIDE 0.65% NA SOLN 45 ML (OCEAN) STA (21:53)
--- NOTE | 2025-04-15 21:56 | Electrocardiogram Report ---
Test Reason : Blood Pressure : */* mmHG Vent. Rate : 74 BPM Atrial Rate : 74 BPM P-R Int : 180 ms QRS Dur : 102 ms QT Int : 384 ms P-R-T Axes : 73 95 21 degrees QTcB Int : 426 ms Sinus rhythm Premature atrial complexes Rightward axis Low voltage QRS Incomplete right bundle branch block Borderline ECG When compared with ECG of 04-Jan-2025 12:01, No significant change Confirmed by Pilo Suero ([id number]) on 04/15/2025 9:56:54 PM Referred By: REFERRED SELF Confirmed By: Pilo Suero
--- NOTE | 2025-04-15 21:57 | Electrocardiogram Report ---
Test Reason : Blood Pressure : */* mmHG Vent. Rate : 66 BPM Atrial Rate : 66 BPM P-R Int : 174 ms QRS Dur : 100 ms QT Int : 390 ms P-R-T Axes : 65 97 -4 degrees QTcB Int : 408 ms Sinus rhythm with Premature atrial complexes Rightward axis Incomplete right bundle branch block Nonspecific T wave abnormality Abnormal ECG When compared with ECG of 14-Apr-2025 22:42, No significant change Confirmed by Pilo Suero ([id number]) on 04/15/2025 9:57:24 PM Referred By: REFERRED SELF Confirmed By: Pilo Suero
--- NOTE | 2025-04-15 21:58 | Electrocardiogram Report ---
Test Reason : Blood Pressure : */* mmHG Vent. Rate : 64 BPM Atrial Rate : 64 BPM P-R Int : 178 ms QRS Dur : 100 ms QT Int : 374 ms P-R-T Axes : 58 87 7 degrees QTcB Int : 385 ms Sinus rhythm with Premature atrial complexes Incomplete right bundle branch block When compared with ECG of 15-Apr-2025 00:24, No significant change Confirmed by Pilo Suero ([id number]) on 04/15/2025 9:58:20 PM Referred By: REFERRED SELF Confirmed By: Pilo Suero
--- NOTE | 2025-04-15 22:58 | Cardiac Catheterization ---
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 Cardiac Status Clinical evaluation leading to the procedure CAD Presenation: Positive Stress Test Diagnostic Physicians Name: Herson Scott MD Closure Device Recommendations: Medical Therapy and/or Counseling Cardiac Cath Procedure Full Procedure Date April 15, 2025 Pre-Procedure Diagnosis Pre-Procedure Diagnosis: Angina and Positive Stress Test AUC Score AUC Score: 7 Post-Procedure Diagnosis Post-Procedure Diagnosis: Moderate CAD and Unsuccessful PCI Procedure(s) Performed Procedure(s) Performed: Coronary Angiography, Left Heart Cath, IVUS and Fractional Flow [employer] Herson Scott MD Distribution Field Engineer(s) [place] Estimated Blood Loss Estimated Blood Loss: 15 Medication(s) Medication(s): Fentanyl, Heparin, Lidocaine 1%, Nicardipine, Nitroglycerin and Versed Summary of Findings Indication: Chest pain, abnormal stress test Access: 6 Fr slender right radial artery Catheters: Duvall, JL 3.5 guide Findings: LM -normal caliber, angulated takeoff with 30% ostial stenosis with eccentric calcified plaque LAD -medium caliber, 40-50% mid segment stenosis. Distal vessel without significant disease and extends right apex. Small to medium D1, D2 without significant disease. Circumflex -medium caliber, 20 to 30% ostial stenosis remainder of AV groove circumflex without significant disease. Medium OM2, OM3 without significant disease. RCA -dominant, medium caliber, 20% proximal, mid segment luminal irregularities. Distal vessel RPDA and PLB without significant disease. LVEDP - 16 IFR of LAD/IVUS of left main Left main cannulated with JL 3.5 guide Burt Omni wire normalized and placed into distal LAD iFR 0.95 IVUS catheter placed to proximal LAD. Pullback revealed mild proximal LAD disease, mild mid/distal left main disease with 30% eccentric calcified plaque at ostium with some mild compression with heartbeat Wire/catheter removed. Postprocedure angiography revealed no apparent complications. Arterial Closure: TR band Summary: 1. Moderate nonobstructive coronary artery disease - 30% eccentric, calcified plaque at left main ostium by IVUS 40-50% mid LAD stenosis (nonobstructive iFR 0.95 across left main/LAD). 2. Normal intracardiac filling pressure Recommendations: No acute or high risk CAD to explain patient's chest symptoms/abnormal stress test Continued ASCVD risk factor modification Hemodynamics Rest Ao:: 114/66/99 Final Ao: 134/68/109 LV: 108/16 Recommendations Recommendations: Medical Therapy and/or Counseling Radiation Exposure (mGy) 661 Contrast (mls) 60 Anesthesia Moderate 6363-1952 Procedural Complication(s) None Disposition PCU I attest to the content of the Intraoperative Record and any orders documented therein. Any exceptions are noted below. [facility] Card Cath Procedure Codes Cardiac Catheterization Procedure 1: Cardiovascular Cath Procedures: 26498 Coronaries and LHC (+/-LV) Procedure 2: Cardiovascular Cath Procedures: 42020 (Doppler) Pressure Wire Therapeutic Services & Ancillary Procedure 1: Cardiovascular Tx and Anc Procedures: 73463 IV Ultrasound (Coronary or Graft) Moderate Sedation Procedure 1: Sedation/Anesthesia: 04362 Mod Sedation by the same physician;Init15 Min Child Age 5 & Up PG Care Time/CCT Total # of Minutes Spent Total Time Spent with Patient: Total time spent is greater than 50% in coordination of care (as documented) at patient's floor/unit and/or counseling patient:
[2025-04-16 05:52] LABS: Hematocrit (blood only) 44.3 % (42.0-52.0); Hemoglobin 15.2 g/dL (14.0-18.0); Mean Corpuscular Hemoglobin 31.3 pg (25.0-34.0); Mean Corpuscular Volume 91.3 fL (80.0-100.0); Platelet Count 173 K/uL (130-400); RDW Standard Deviation 43.2 fL (36.4-46.3); Red Blood Count 4.85 M/uL (4.70-6.10); White Blood Count 6.93 K/ul (4.8-10.8)
[2025-04-16 06:05] LABS: Anion Gap 4.0 (3-11); Blood Urea Nitrogen 15.0 mg/dl (6-23); Calcium 9.0 mg/dl (8.6-10.3); Carbon Dioxide 26.0 mmol/L (21-32); Chloride 106.0 mmol/L (98-107); Creatinine Clr Calc Pharmacy 62.2 ml/min; Glucose 98.0 mg/dl (70-99(Fasting)); Magnesium 1.9 mg/dl (1.7-2.4); Potassium 4.3 mmol/L (3.5-5.1); Sodium 136.0 mmol/L (136-145)
[2025-04-16 11:48] VITALS: PULSE 65; RESP 19; TEMP 97.5; O2SAT 97
--- NOTE | 2025-04-16 12:33 | Discharge Summary ---
Date of Service April 16, 2025 Admission HPI Per Admitting Provider History obtained from patient, family, and records. Medical history significant for hypertension, hyperlipidemia/statin intolerance, COPD, DM2 on oral medications, ulcerative proctitis, BPH, past tobacco abuse. Last confinement October 2024 for left-sided chest pain attributed to musculoskeletal etiology. Stress echo negative. Recurrent left-sided chest pain symptoms following discharge from the hospital. Outpatient nuclear stress test requested by [facility] 2 weeks ago showed small area of apical ischemia. Follow-up appointment recommended to discuss options. Provider recommended starting aspirin 81 mg daily and amlodipine 2.5 mg p.o. daily given elevated BP at time of stress test. Patient scheduled to see provider next month. Recurrent left-sided chest pain episodes both at rest and exertion associated with SOB following stress test. No unusual cough symptoms. Patient compliant with new home medications. No abdominal pain, intermittent rectal bleed from proctitis episode from last month getting better with medication prescribed by GI provider. Patient consulted ER for worsening symptoms last night. Patient currently comfortable. 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 Admission Exam Per Admitting Provider GENERAL: Comfortable, pleasant, slightly anxious, no respiratory distress SKIN: Normal color, warm HEENT: [place] palpebral conjunctivae, no ptosis, moist buccal mucosa NECK : Supple, no tenderness CHEST : CTA, left chest wall tenderness HEART : RRR, no obvious murmurs ABDOMEN: Some distention, nontender EXTREMITIES : No LE swelling/tenderness, palpable pulses, no other conspicuous deformities noted NEUROLOGIC : Coherent, no facial asymmetry, no other gross focality Principal Diagnosis Atypical chest pain Abnormal nuclear stress test Discharge Exam GENERAL: Comfortable, pleasant, WD/WN M in NAD SKIN: Normal color, warm HEENT: NC/AT, EOMI NECK : Supple CHEST : CTAB HEART : RRR, no obvious murmurs ABDOMEN: Soft, nontender EXTREMITIES : No LE swelling, moves extremities NEUROLOGIC : awake, alert, answers appropriately, moves extremities w/o difficulty Discharge Data Allergies Allergy/AdvReac Type Severity Reaction Status Date / Time omeprazole Allergy Unknown Verified 04/14/25 23:18 Penicillins AdvReac Unknown Verified 04/14/25 23:18 Nihckxo-PDL-NmJ Reductase AdvReac Joint Pain Verified 04/14/25 23:18 Inhibitor Consultations 04/15/25 02:20 ED Decision to Admit Stat 04/15/25 04:32 Consult Cardiology Routine Procedures Performed Operation Date: 04/15/25 13:45 Actual Procedures p Cineradiography w/Routine Exam - Herson Scott MD p Cath, Left with Cors and Vent - Herson Scott MD s IVUS Coronary Single Vessel - Herson Scott MD Ordered Studies 04/15/25 03:12 CT angio chest PE protocol Stat FINDINGS: Aorta: The thoracic aorta is normal in caliber. No evidence of aneurysm or dissection. A few scattered atherosclerotic plaques of the scanned aorta.Interval stable. Pulmonary Arteries: Pulmonary arteries are normal in size and opacification. No evidence of pulmonary embolism. No stenosis or filling defects. Superior Vena Cava (SVC) and Inferior Vena Cava (IVC): Normal opacification and caliber. No evidence of thrombus or obstruction. Coronary Arteries: Coronary arteries are well-opacified. No significant stenosis or atherosclerotic changes. Mediastinum: A few enlarged mediastinal lymph nodes, the largest is noted in the pre-tracheal/retrocaval group, measuring about 13 mm in the short axis diameter. Interval stable. Heart: Normal size and morphology of the heart. No pericardial effusion. Lungs: Interval new bilateral diffuse mosaic attenuation of the lung parenchyma. No pleural effusion or pleural thickening. Bilateral basal reticulation and scarring. Interval stable. Right lower lobe 4 mm calcified granuloma.Interval stable. Bones: No fractures or lytic/sclerotic lesions of the visualized bony structures. Normal alignment and bone density. Soft Tissues: Normal appearance of the visualized soft tissues. No abnormal masses or fluid collections. Upper abdominal cuts reveal a small sliding hiatus hernia with incomplete visualization of the kidneys, only showing left multiple cysts and calcifications. Interval stable. IMPRESSION: 1. No evidence of significant vascular abnormalities. 2. Interval new bilateral diffuse mosaic attenuation of the lung parenchyma. This might denote underlying small airway disease. 3. Right lower lobe 4 mm calcified granuloma.Interval stable. 4. A few scattered atherosclerotic plaques of the scanned aorta.Interval stable. 5. A few enlarged mediastinal lymph nodes. Interval stable. 04/15/25 13:35 CL Cath Imgs for PACS use only Stat Hospital Course (1) Chest pain: Atypical chest pain Abnormal stress test Chest pain r/o ACS Apical ischemia on recent outpatient nuclear stress test Musculoskeletal component contributory given reproducibility on exam Cardiology consulted and pt underwent cardiac cath Summary: 1. Moderate nonobstructive coronary artery disease - 30% eccentric, calcified plaque at left main ostium by IVUS 40-50% mid LAD stenosis (nonobstructive iFR 0.95 across left main/LAD). 2. Normal intracardiac filling pressure Recommendations: No acute or high risk CAD to explain patient's chest symptoms/abnormal stress test Continued ASCVD risk factor modification Discussed with cardiology - no medication changes recommended at this time. Outpt follow up w/ cardiology arranged. hypertension, slightly elevated hyperlipidemia/statin intolerance COPD, not in acute exacerbation DM2 on oral medications, suboptimal control as of recent hemoglobin A1c of 7.8 last October 2024 ulcerative proctitis, patient still with rectal bleeding although improving from recent flareup past tobacco abuse Total Time Total Time Spent Total Time Spent (In Minutes): 40 Discharge Plan Discharge Items Patient Disposition: Home - Self-Care Reason For Visit: CP Discharge Diagnosis: Atypical chest pain Abnormal nuclear stress test Condition on Discharge: Good Activity: Per Instructions section Non-emergency contact: Primary Care Provider and Equities Analyst Call non-emergency contact if: you have any medication questions and your symptoms worsen Follow-up/Referrals: Rosanna Buckley PA-C [Primary Care Provider] - (Date & Time 04/20/2025 1:00 PM Provider: Rosanna Buckley PA-C [facility] ) Althea Woodall PA-C [Physician Manager Finance] - 05/14/25 2:30 pm Diet: Heart Healthy Addtl Attending Provider Instructions: Follow up with 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 You should be seen by your primary care doctor within 1 week. Your medications were not changed at this time. Pending Studies at Discharge: No Stand-Alone Forms: [facility] cdream network, Smoking Cessation Medications and DC Order Prescriptions: Continued glipizide 10 mg tablet 10 mg PO BIDM Rx Instructions: take 30 minutes before morning and evening meals amlodipine 2.5 mg tablet 2.5 mg PO QAM tamsulosin 0.4 mg capsule 0.4 mg PO QAM ezetimibe 10 mg tablet 10 mg PO QAM Jardiance 25 mg tablet 25 mg PO QAM aspirin [Aspirin Low-Strength] 81 mg Tablet,Delayed Release (Dr/Ec) 81 mg PO QAM mesalamine 1.2 gram tablet,delayed release (DR/EC) 1.2 g PO BID Rx Instructions: if UC symptoms increase to 2 tabs twice a day mesalamine 1,000 mg Suppository 1 g GA HS PRN (Reason: if rectal bleeding) Fish Oil 500 mg Capsule 500 mg PO QAM Discharge Orders: Discharge Order (Routine); Ordered 04/16/25 Ordered By: Marlon Arthur Admission Data Admit Date/Time: 04/15/25 02:28 Attending Provider: Marlon Arthur Admit Provider: Henok Heredia Primary Care Provider: Rosanna Buckley Other Providers: Henok Heredia; Tegan Vee; Heriberto Fountain; Aron Soto; Josue Medel; Da Soria; Nader Sarabia; Amy Wiggins; Althea Woodall; Nyla Wood; Marily Redd; Tegan Pinzon; [place]; Arvind Clements; Tati Grant; Temitope Motley; Izabella Virk; Johann Lugo; Rosalio Roach; Kalie Soto; Beth Sousa; Herson Cortez; Jamshid Wellington N
[2025-04-16 12:44] VITALS: BP 103/67
--- NOTE | 2025-04-16 14:34 | Cardiology Progress Note ---
Date of Service April 16, 2025 Assessment & Plan (1) Atypical chest pain: (2) Shortness of breath: (3) Abnormal nuclear stress test: Plan Assessment: 79 year old male presents to the ER with intermittent episodes of chest pain, and shortness of breath worse with exertion. Recent abnormal nuclear stress test. EKG with no acute ischemic changes and troponin negative x3 04/15/25 Card cath Summary: 1. Moderate nonobstructive coronary artery disease - 30% eccentric, calcified plaque at left main ostium by IVUS 40-50% mid LAD stenosis (nonobstructive iFR 0.95 across left main/LAD). 2. Normal intracardiac filling pressure Chest Pain Abnormal Nuclear Stress Test Lower GI bleed - Ulcerative proctitis DM HLD COPD BPH cont medical management risk factor modification start Zetia 10mg po daily cont Norvasc stable from card standpoint for discharge f/u in cardiology clinic post discharge Admission and Anticipated Discharge Date Admission Date: April 15, 2025 Subjective Patient on exam is lying in bed in NAD; no c/o cp, sob, palpitations, dizziness, LOC s/o card cath yesterday Review of Systems Review of Systems: as per hpi Physical Exam Constitutional: well developed and well nourished; no acute distress Neck: normal visual inspection and trachea midline Respiratory: normal respiratory effort, lungs clear to auscultation Cardiovascular: S1S2, sys murm Skin: no rashes, warm and dry Psychiatric: A+Ox3, euthymic affect Results & Data Vital Signs (Past 12 Hours) Vital Signs Vital Signs Temp 36.4 C L 04/16/25 12:40 Pulse 65 04/16/25 12:40 Resp 19 04/16/25 12:40 BP 103/67 04/16/25 12:40 Pulse Ox 97 04/16/25 12:40 O2 Del Method Room Air 04/16/25 11:47 Intake & Output 04/15/25 04/16/25 04/16/25 18:59 06:59 18:59 Intake Total 1084 / 1384 300 / 1384 Balance 1084 / 1384 300 / 1384 Weight 73.4 kg 73.4 kg Intake: IV 844 / 844 Sodium Chloride 0.9% 1,000 ml @ 844 / 844 60 mls/hr IV .[id number] ONE Rx#: [id number] Oral 240 / 540 300 / 540 Other: # Unmeasured Voids 2 Weight Measurement Method Standing Scale Temp Pulse Pulse Resp BP BP Pulse Ox 04/16/25 12:40 36.4 C L 65 19 103/67 116/72 97 04/16/25 11:47 36.4 C L 65 19 116/72 97 04/16/25 09:23 81 04/16/25 08:00 81 04/16/25 07:56 36.6 C 73 18 131/74 95 04/16/25 03:23 36.6 C 69 18 103/67 95 O2 Del Method 04/16/25 12:40 04/16/25 11:47 Room Air 04/16/25 09:23 04/16/25 08:00 04/16/25 07:56 Room Air 04/16/25 03:23 Room Air Laboratory Results Laboratory Results WBC 6.93 K/ul (4.8-10.8) 04/16/25 05:23 RBC 4.85 M/uL (4.70-6.10) 04/16/25 05:23 Hgb 15.2 g/dL (14.0-18.0) 04/16/25 05:23 Hct 44.3 % (42.0-52.0) 04/16/25 05:23 MCV 91.3 fL (80.0-100.0) 04/16/25 05:23 MCH 31.3 pg (25.0-34.0) 04/16/25 05:23 MCHC 34.3 g/dL (32.0-36.0) 04/16/25 05:23 RDW Std Deviation 43.2 fL (36.4-46.3) 04/16/25 05:23 RDW Coeff of Epifanio 13.0 % (11.5-14.5) 04/16/25 05:23 Plt Count 173 K/uL (130-400) 04/16/25 05:23 MPV 9.6 fL (9.4-12.4) 04/16/25 05:23 Immature Gran % (Auto) 0.5 % 04/15/25 05:24 Neut % (Auto) 56.7 % 04/15/25 05:24 Lymph % (Auto) 23.8 % 04/15/25 05:24 [place] % (Auto) 14.9 % 04/15/25 05:24 Eos % (Auto) 3.6 % 04/15/25 05:24 Baso % (Auto) 0.5 % 04/15/25 05:24 Neut # (Auto) 3.58 K/uL (1.40-6.50) 04/15/25 05:24 Lymph # (Auto) 1.50 K/uL (1.20-3.40) 04/15/25 05:24 [place] # (Auto) 0.94 K/uL (0.11-0.59) H 04/15/25 05:24 Eos # (Auto) 0.23 K/uL (0.00-0.50) 04/15/25 05:24 Baso # (Auto) 0.03 K/uL (0.00-0.20) 04/15/25 05:24 Immature Gran # (Auto) 0.03 K/uL (0.01-0.20) 04/15/25 05:24 APTT 29 Seconds (21-31) 04/15/25 05:24 PTT Ratio 1.1 04/15/25 05:24 Sodium 136 mmol/L (136-145) 04/16/25 05:23 Potassium 4.3 mmol/L (3.5-5.1) 04/16/25 05:23 Chloride 106 mmol/L (98-107) 04/16/25 05:23 Carbon Dioxide 26 mmol/L (21-32) 04/16/25 05:23 Anion Gap 4 (3-11) 04/16/25 05:23 BUN 15 mg/dl (6-23) 04/16/25 05:23 Creatinine 0.84 mg/dl (0.6-1.4) 04/16/25 05:23 Est Cr Clr Drug Dosing 62.2 ml/min 04/16/25 05:23 eGFR 87.61 04/16/25 05:23 BUN/Creatinine Ratio 17.9 (10-20) 04/16/25 05:23 Glucose 98 mg/dl (70-99(Fasting)) 04/16/25 05:23 POC Glucose 141 mg/dl (70-99) H 04/16/25 11:13 Calcium 9.0 mg/dl (8.6-10.3) 04/16/25 05:23 Phosphorus 3.2 mg/dl (2.5-4.9) 04/16/25 05:23 Magnesium 1.9 mg/dl (1.7-2.4) 04/16/25 05:23 Total Bilirubin 0.3 mg/dl (0.2-1.0) 04/14/25 22:46 AST 15 U/L (13-39) 04/14/25 22:46 ALT 15 U/L (7-52) 04/14/25 22:46 Alkaline Phosphatase 67 U/L (34-104) 04/14/25 22:46 Troponin I High Sens 3.7 pg/ml (0-20) 04/15/25 05:24 Total Protein 7.4 gm/dl (6.0-8.3) 04/14/25 22:46 Albumin 4.0 gm/dl (3.4-5.0) 04/14/25 22:46 Globulin 3.4 gm/dl (2.5-4.0) 04/14/25 22:46 Albumin/Globulin Ratio 1.2 (0.9-2) 04/14/25 22:46 Lipase 34 U/L (11-82) 04/14/25 22:46 Impressions Chest X-Ray 04/14/25 22:49 Exam(s): XR CXR 1 VIEW EXAM: XR Chest, 1 View CLINICAL HISTORY: Chest pain, nonspecific. TECHNIQUE: Frontal view of the chest. COMPARISON: Portable chest single view 01/04/2025 FINDINGS: Lungs: Subcentimeter calcified granulomas, stable. No focal consolidation. The pulmonary vasculature demonstrates no significant radiographic abnormality. Pleural space: Unremarkable. No pneumothorax. No large pleural effusion. Heart: Unremarkable. No cardiomegaly. Mediastinum: The mediastinal contours are stable, accounting for lordotic technique. No tracheal deviation. Bones/joints: Unremarkable. No acute fracture. IMPRESSION: No acute cardiopulmonary process or significant alteration from the prior examination. Electronically signed by: Timur Carroll MD 04/15/25 00:11 AM Chest CTA 04/15/25 03:12 EXAM: CT angio chest PE protocol CLINICAL HISTORY: Chest pain. TECHNIQUE: Contiguous 3.[address] angiographic images of the chest were acquired with the administration of intravenous contrast 118 ml optiray 320 mg/ml. Coronal and sagittal reconstructions were obtained. One of these 3D techniques was utilized: Maximum Intensity Pixel (MIP), 3D Reconstructed Images, Volume Rendered Images, Surface Shaded Rendering. One of the following dose reduction techniques were utilized for this exam: Automated exposure control, adjustment of the mA and/or kV according to patient size, and use of iterative reconstruction. COMPARISON: Compared to the prior study dated 11/10/2024 FINDINGS: Aorta: The thoracic aorta is normal in caliber. No evidence of aneurysm or dissection. A few scattered atherosclerotic plaques of the scanned aorta.Interval stable. Pulmonary Arteries: Pulmonary arteries are normal in size and opacification. No evidence of pulmonary embolism. No stenosis or filling defects. Superior Vena Cava (SVC) and Inferior Vena Cava (IVC): Normal opacification and caliber. No evidence of thrombus or obstruction. Coronary Arteries: Coronary arteries are well-opacified. No significant stenosis or atherosclerotic changes. Mediastinum: A few enlarged mediastinal lymph nodes, the largest is noted in the pre-tracheal/retrocaval group, measuring about 13 mm in the short axis diameter. Interval stable. Heart: Normal size and morphology of the heart. No pericardial effusion. Lungs: Interval new bilateral diffuse mosaic attenuation of the lung parenchyma. No pleural effusion or pleural thickening. Bilateral basal reticulation and scarring. Interval stable. Right lower lobe 4 mm calcified granuloma.Interval stable. Bones: No fractures or lytic/sclerotic lesions of the visualized bony structures. Normal alignment and bone density. Soft Tissues: Normal appearance of the visualized soft tissues. No abnormal masses or fluid collections. Upper abdominal cuts reveal a small sliding hiatus hernia with incomplete visualization of the kidneys, only showing left multiple cysts and calcifications. Interval stable. IMPRESSION: 1. No evidence of significant vascular abnormalities. 2. Interval new bilateral diffuse mosaic attenuation of the lung parenchyma. This might denote underlying small airway disease. 3. Right lower lobe 4 mm calcified granuloma.Interval stable. 4. A few scattered atherosclerotic plaques of the scanned aorta.Interval stable. 5. A few enlarged mediastinal lymph nodes. Interval stable. Electronically signed by Syed Gross 04-15-2025 04:27 AM Diagnostic Findings CBC 04/16/25 Range/Units 05:23 WBC 6.93 (4.8-10.8) K/ul RBC 4.85 (4.70-6.10) M/uL Hgb 15.2 (14.0-18.0) g/dL Hct 44.3 (42.0-52.0) % Plt Count 173 (130-400) K/uL Comprehensive Metabolic Panel 04/16/25 Range/Units 05:23 Sodium 136 (136-145) mmol/L Potassium 4.3 (3.5-5.1) mmol/L Chloride 106 (98-107) mmol/L Carbon Dioxide 26 (21-32) mmol/L BUN 15 (6-23) mg/dl Creatinine 0.84 (0.6-1.4) mg/dl Glucose 98 (70-99(Fasting)) mg/dl Calcium 9.0 (8.6-10.3) mg/dl Intake and Output 04/15/25 04/16/25 04/16/25 22:59 06:59 14:59 Intake Total 1184 / 1384 200 / 1384 Balance 1184 / 1384 200 / 1384 Intake: IV 844 / 844 Sodium Chloride 0.9% 1,000 ml @ 844 / 844 60 mls/hr IV .[id number] ONE Rx#: [id number] Oral 340 / 540 200 / 540 Other: # Unmeasured Voids 1 2 Weight 73.4 kg 73.4 kg Weight Measurement Method Standing Scale Patient Weight 04/17/25 06:59 Weight 73.4 kg Medications Administered Home Medications Medication Instructions Recorded Confirmed Last Taken amlodipine 2.5 mg tablet 2.5 mg PO QAM 04/14/25 04/14/25 Unknown aspirin 81 mg tablet,delayed 81 mg PO QAM 04/14/25 04/14/25 Unknown release empagliflozin 25 mg tablet 25 mg PO QAM 04/14/25 04/14/25 Unknown (Jardiance) ezetimibe 10 mg tablet 10 mg PO QAM 04/14/25 04/14/25 Unknown glipizide 10 mg tablet 10 mg PO BIDM 04/14/25 04/14/25 Unknown mesalamine 1,000 mg rectal 1 g IN HS PRN if rectal bleeding 04/14/25 04/14/25 Unknown suppository mesalamine 1.2 gram tablet,delayed 1.2 g PO BID 04/14/25 04/14/25 Unknown release omega-3 fatty acids 500 mg capsule 500 mg PO QAM 04/14/25 04/14/25 Unknown tamsulosin 0.4 mg capsule 0.4 mg PO QAM 04/14/25 04/14/25 Unknown Active Medications Generic Name Dose Route Start Last Admin Trade Name Freq PRN Reason Stop Dose Admin Acetaminophen 650 mg 04/15/25 02:29 04/15/25 20:46 Acetaminophen 325 Mg Tab PO 05/15/25 02:28 650 mg QID PRN Administration pain/fever Amlodipine Besylate 2.5 mg 04/15/25 09:00 04/16/25 08:56 Amlodipine Besylate 5 Mg Tab PO 05/15/25 08:59 2.5 mg QAM ROSA Administration Aspirin 81 mg 04/15/25 09:00 04/16/25 08:57 Aspirin 81 Mg Ectab PO 05/15/25 08:59 81 mg QAM ROSA Administration Enoxaparin Sodium 40 mg 04/15/25 09:00 04/16/25 08:58 Enoxaparin Inj 40 Mg/0.4 Ml Syr SQ 05/15/25 08:59 40 mg QAM ROSA Administration Insulin Aspart 0 units 04/15/25 21:00 04/16/25 12:16 Insulin Aspart Per Unit Charge SC 05/15/25 03:36 Not Given ACHS ROSA Insulin Glargine 5 units 04/15/25 09:00 04/16/25 08:56 Lantus Per Unit Charge SQ 05/15/25 08:59 5 units DAILY ROSA Administration Miscellaneous 1 each 04/15/25 08:00 04/16/25 08:49 Mesalamine 1.2gm: Order Awaiting Action N/A 05/15/25 07:59 Not Given QS ROSA Tamsulosin HCl 0.4 mg 04/15/25 09:00 04/16/25 08:59 Tamsulosin Hcl 0.4 Mg Cap PO 05/15/25 08:59 0.4 mg QAM ROSA Administration PG Care Time/CCT Total # of Minutes Spent Total Time Spent with Patient: Total time spent is greater than 50% in coordination of care (as documented) at patient's floor/unit and/or counseling patient: Coding Level of Care Code 90509 SUB INP/OBS CARE 3/50MIN Diagnoses Atypical chest pain R07.89 Shortness of breath R06.02 Abnormal nuclear stress test R94.39
--- NOTE | 2025-04-16 22:19 | Electrocardiogram Report ---
Test Reason : Blood Pressure : */* mmHG Vent. Rate : 67 BPM Atrial Rate : 67 BPM P-R Int : 172 ms QRS Dur : 102 ms QT Int : 392 ms P-R-T Axes : 67 92 1 degrees QTcB Int : 414 ms Sinus rhythm with Premature atrial complexes Rightward axis Borderline ECG When compared with ECG of 15-Apr-2025 06:27, No significant change was found Confirmed by Pilo Suero ([id number]) on 04/16/2025 10:19:41 PM Referred By: REFERRED SELF Confirmed By: Pilo Suero
[2025-04-17] MEDS ORDERED: EZETIMIBE 10 MG TAB PO SCH (09:00)
== END 2025-04-16 14:51 | disposition home or self-care (01) ==
LOC: ED 22:34 → 2S 22:34